=== PATIENT | female | born 1990 | race Caucasian/White ===

== ENCOUNTER 2019-05-05 15:52 | Emergency (ER) | payer OTHER ==
[~2019-05-05] VITALS: Ht 149.9 cm; Wt 61.2 kg
[2019-05-05 17:06] VITALS: BP 126/77
[2019-05-05] MEDS ORDERED: DICL75TA PO (17:44)
--- NOTE | 2019-05-05 17:45 | PHYS DOC ---
Past History Past Medical History: No Pertinent History Past Surgical History: No Surgical History Alcohol Use: Occasionally Drug Use: None Adult General Chief Complaint Chief Complaint: LOWEREXTREMITY INJURY HPI HPI Patient is a 29-year-old female who presents with complaint of right foot and ankle pain since April 29. Patient states that on the she had stepped out of a car that was still moving and she twisted her foot and ankle. Patient states that she has been having to walk on her tiptoes since the injury. She states the pain is worsening over time. She denies any other injuries. She rates pain as moderate.[] Review of Systems Review of Systems Constitutional: Denies fever or chills [] Respiratory: Denies cough or shortness of breath [] Cardiovascular: No additional information not addressed in HPI [] Musculoskeletal: Positive right foot and ankle pain [] Integument: Denies rash or skin lesions [] Allergies Allergies Allergies Coded Allergies Type Severity Reaction Last Updated Verified No Known Drug Allergies 05/05/19 No Physical Exam Physical Exam Constitutional: Well developed, well nourished, no acute distress, non-toxic appearance. [] Cardiovascular:Heart rate regular rhythm, no murmur [] Lungs & Thorax: Bilateral breath sounds clear to auscultation [] Extremities: Examination of right foot and ankle demonstrates no acute signs of trauma. Patient does report to tenderness to palpation around the medial malleolus and along the plantar aspect of first and fifth metatarsals. [] Neurologic: Alert and oriented X 3, no focal deficits noted. [] Current Patient Data Vital Signs Vital Signs Date Time Temp Pulse Resp B/P (MAP) Pulse Ox O2 Delivery O2 Flow Rate FiO2 05/05/19 17:06 97.8 101 18 100 Room Air EKG EKG [] Radiology/Procedures Radiology/Procedures [] Impressions: X-ray imaging of the right foot and ankle demonstrates no acute bony abnormalities. Course & Med Decision Making Course & Med Decision Making Pertinent Labs and Imaging studies reviewed. (See chart for details) [] Dragon Disclaimer Dragon Disclaimer This electronic medical record was generated, in whole or in part, using a voice recognition dictation system. Departure Departure: Impression: Primary Impression: Right foot sprain Additional Impression: Right ankle sprain Disposition: HOME, SELF-CARE Condition: STABLE Referrals: YOSEPH COUCH MD (PCP) Patient Instructions: Ankle Sprain, Foot Sprain Scripts Diclofenac Sodium (DICLOFENAC SODIUM) 75 Mg Tablet. 1 TAB PO BID PRN for PAIN, #14 TAB Prov: MAKENNA BLACK Jr. DO 05/05/19 Problem Qualifiers Primary Impression: Right foot sprain Encounter type: initial encounter Qualified Codes: S93.601A - Unspecified sprain of right foot, initial encounter Additional Impression: Right ankle sprain Encounter type: initial encounter Involved ligament of ankle: unspecified ligament Qualified Codes: S93.401A - Sprain of unspecified ligament of right ankle, initial encounter MAKENNA BLACK Jr. DO May 05, 2019 17:45
--- NOTE | 2019-05-05 17:46 | RAD ---
FOOT RIGHT 3V, ANKLE RIGHT 3V History: Twisting injury.. Right ankle: No evidence of acute fracture. No aggressive bone destruction. Joint spaces and alignment are intact. No significant soft tissue abnormality. Right foot: No evidence of an acute fracture. No aggressive bone destruction. Joint spaces and alignment are intact. IMPRESSION: No evidence of acute fracture or dislocation. If symptoms do not improve, consider outpatient MRI. Electronically signed by: Robert Manzanares MD (05/05/2019 5:43 PM) [facility]
== END 2019-05-05 18:25 | disposition home or self-care (01) ==
LOC: ER 15:52
DX: S93.601A Unspecified sprain of right foot, initial encounter (principal); S93.401A Sprain of unspecified ligament of right ankle, initial encounter; X50.1XXA Overexertion from prolonged static or awkward postures, initial encounter; Y93.89 Activity, other specified; Y92.89 Other specified places as the place of occurrence of the external cause; Y99.8 Other external cause status
CPT/HCPCS: 73610; 73630; 99284